=== PATIENT | female | born 1985 | race Caucasian/White ===

== ENCOUNTER 2017-04-20 16:14 | Observation (INO) | payer SELFPAY ==
[2017-04-20] MEDS ORDERED: SYNTHROID137 MC1 PO (22:02)
[2017-04-20] MEDS ORDERED: CITALOPRAM HBR40 M1 PO (22:05)
[2017-04-21] MEDS ORDERED: SILVADENE20 G1 TP (12:02)
[2017-04-21] MEDS ORDERED: NORCO 5-325 TA1 EACH PO (12:03)
[2017-04-21] MEDS ORDERED: BACITRACIN28.4 G2 TP (12:12)
[2017-04-24] MEDS ORDERED: IBUPROFEN800 M1 PO (09:12)
== END 2017-04-21 13:12 ==
LOC: EMR2 16:14 → BURN 16:20
PROVIDERS: ADMIT Surgery
DX: T20.40XA Corrosion of unspecified degree of head, face, and neck, unspecified site, initial encounter (principal); T32.0 Corrosions involving less than 10% of body surface; E89.0 Postprocedural hypothyroidism; Z79.899 Other long term (current) drug therapy; Z88.1 Allergy status to other antibiotic agents; Z90.710 Acquired absence of both cervix and uterus; Z90.89 Acquired absence of other organs
CPT/HCPCS: G0378; G0379